=== PATIENT | male | born 1980 | race Two or more races ===

== ENCOUNTER 2020-11-25 20:24 | Emergency (ER) | payer SELFPAY ==
--- NOTE | 2020-11-25 20:49 | EDM.PDOC ---
<Ronni Ashraf - Last Filed: 11/25/20 21:10> ED HPI GENERAL MEDICAL PROBLEM - General Stated Complaint: POISON OAK Time Seen by Provider: 11/25/20 20:44 Source of Information: Reports: Patient History Limitations: Reports: No Limitations - History of Present Illness INITIAL COMMENTS - FREE TEXT/NARRATIVE: Patient is a 40 yo male with no significant PMH and not on any medications that presents for rash/itching of his arms. Patient was clearing brush/branches in his yard yesterday, 11/24, and developed a itchy rash over both of his forearms today that is getting worse. Patient tried benadryl and calamine lotion this afternoon at 4pm with mild relief. He has no other concerns and denies any other symptoms. Denies fever, chills, chest pain, SOB, abd pain, or nausea/vomiting. Onset: Today, Sudden Location: Reports: Upper Extremity, Left, Upper Extremity, Right Quality: Reports: Burning Severity: Mild Improves with: Reports: Medication Worsens with: Reports: Other (Itching) Associated Symptoms: Reports: No Other Symptoms Treatments ELEMENTARY PRINCIPAL: Reports: Other (see below) (Benadryl) - Related Data Allergies Allergy/AdvReac Type Severity Reaction Status Date / Time No Known Allergies Allergy Verified 11/25/20 20:49 Home Meds: Home Meds Pramoxine HCl/Zinc Acetate [Calamine Clear Lotion] 177 ml TP 11/25/20 [History] diphenhydrAMINE [Benadryl] 11/25/20 [History] ED ROS GENERAL - Review of Systems Review Of Systems: See Below Constitutional: Reports: No Symptoms HEENT: Reports: No Symptoms Respiratory: Reports: No Symptoms Cardiovascular: Reports: No Symptoms Endocrine: Reports: No Symptoms GI/Abdominal: Reports: No Symptoms : Reports: No Symptoms Musculoskeletal: Reports: No Symptoms Skin: Reports: Pruritis, Rash Neurological: Reports: No Symptoms Psychiatric: Reports: No Symptoms ED EXAM, SKIN/RASH Exam: See Below Exam Limited By: No Limitations General Appearance: Alert, WD/WN, No Apparent Distress Eye Exam: Bilateral Eye: PERRL Ears: Hearing Grossly Normal Nose: Normal Inspection Throat/Mouth: Normal Inspection, Normal Lips Head: Atraumatic, Normocephalic Neck: Normal Inspection Respiratory/Chest: No Respiratory Distress, Lungs Clear, Normal Breath Sounds, No Accessory Muscle Use, Chest Non-Tender Cardiovascular: Normal Peripheral Pulses, Regular Rate, Rhythm, No Edema GI/Abdominal: Normal Bowel Sounds, Soft, Non-Tender, No Distention Extremities: Non-Tender, No Pedal Edema, Normal Capillary Refill, Redness (Maculopapular rash of forearms bilaterally) Neurological: Alert, Oriented Psychiatric: Normal Affect, Normal Mood Skin: Warm, Dry, Rash (Maculopapular rash on bilateral forearms), Tattoo(s) Departure - Departure Time of Disposition: 21:13 Disposition: Home, Self-Care 01 Clinical Impression: Poison oak dermatitis - Discharge Information *PRESCRIPTION DRUG MONITORING PROGRAM REVIEWED*: No *COPY OF PRESCRIPTION DRUG MONITORING REPORT IN PATIENT JASMIN: No Instructions: Poison Evangelina Dermatitis, [id number] Forms: ED Department Discharge Additional Instructions: prednisone 40mg x 5 days benadryl 25mg three times daily as needed for tiching follow up if symptoms worsen - Problem List & Annotations (1) Poison oak dermatitis SNOMED Code(s): 295231534 Code(s): L23.7 - ALLERGIC CONTACT DERMATITIS DUE TO PLANTS, EXCEPT FOOD Status: Acute - Problem List Review Problem List Initiated/Reviewed/Updated: Yes - Assessment/Plan Plan: Benadryl 25 mg TID PRN for itching. Prednisone 40 mg daily. Continue with Calmine lotion and other anti-itch creams. Discussed proper skin care. <Arpita Rees - Last Filed: 11/26/20 05:21> Course - Vital Signs Last Recorded V/S: Last Vital Signs Temp 99.6 F 11/25/20 20:46 Pulse 98 11/25/20 20:46 Resp 16 11/25/20 20:46 BP 135/85 11/25/20 20:46 Pulse Ox 97 11/25/20 20:46 - Orders/Labs/Meds Meds: Medications Discontinued Medications Generic Name Dose Route Start Last Admin Trade Name Freq PRN Reason Stop Dose Admin Hydroxyzine HCl 25 mg 11/25/20 20:55 11/25/20 21:15 Hydroxyzine Hcl 25 Mg Tab PO 11/25/20 20:56 25 mg ONETIME ONE Administration Prednisone 40 mg 11/25/20 20:57 11/25/20 21:15 Prednisone 20 Mg Tab PO 11/25/20 20:58 40 mg ONETIME ONE Administration Departure - Departure Condition: Good Sepsis Event Note (ED) - Focused Exam Vital Signs: Vital Signs Temp Pulse Resp BP Pulse Ox 11/25/20 20:46 99.6 F 98 16 135/85 97 Attestation - Resident - Attestation Statement Attestation Statement: I saw and evaluated the patient. Discussed with resident and agree with residents findings and plan as documented in the residents note.
[2020-11-25] MEDS ORDERED: hydrOXYzine HCl 25 MG Tab PO ONE (20:55)
[2020-11-25] MEDS ORDERED: predniSONE 20 MG Tab PO ONE (20:57)
== END 2020-11-25 21:16 | disposition home or self-care (01) ==
LOC: DL.ED 20:24
DX: L23.7 Allergic contact dermatitis due to plants, except food (principal)
CPT/HCPCS: 99282; 99283; A9270; J7512

== ENCOUNTER 2021-01-11 14:56 | Emergency (ER) | payer SELFPAY ==
[2021-01-11] MEDS ORDERED: Ondansetron 4 MG Tab.DIS PO ONE (14:57)
[2021-01-11] MEDS ORDERED: Famotidine 20 MG/2 ML SDV IVPUSH ONE (16:59)
[2021-01-11] MEDS ORDERED: Sodium Chloride 0.9% 1,000 ML IV ONE (16:59)
[2021-01-11] MEDS ORDERED: Ondansetron 4 MG/2 ML SDV IV ONE (16:59)
[2021-01-11] MEDS ORDERED: Sodium Chloride 0.9% 10 ML Syringe FLUSH PRN (16:59)
[2021-01-11 17:39] LABS: PTT,PARTIAL THROMBOPLSTIN TIME 22.3 SEC (22.0-34.0)
[2021-01-11 17:41] LABS: ANION GAP 16.4 mEq/L (7-13); CHLORIDE,CL 103 mmol/L (98-107); SODIUM,NA 142 mmol/L (136-145)
[2021-01-11] MEDS ORDERED: GI Cocktail Oral Solution 30 ML PO ONE (17:56)
--- NOTE | 2021-01-11 18:34 | EDM.PDOC ---
Scribed by Yaritza Freitas 01/11/21 [id number] for Hola Jackson MD ED HPI GENERAL MEDICAL PROBLEM - General Chief Complaint: Gastrointestinal Problem Stated Complaint: 96.0 * TEMP, THROWING UP ALL NIGHT, Time Seen by Provider: 01/11/21 16:58 Source of Information: Reports: Patient, RN, RN Notes Reviewed History Limitations: Reports: No Limitations - History of Present Illness INITIAL COMMENTS - FREE TEXT/NARRATIVE: Patient presents to ED by POV stating that he has been vomiting since last evening. He felt well yesterday until he ate an under cooked hamburger. A few hours after eating he began to feel nauseated and vomited several times during the night. He thought it would pass but he has continued to vomit today anytime he has tried to eat or drink. Denies fever or chills. Denies diarrhea. Denies any another symptoms. Admits to epigastric abdominal pain, no radiating pain. He saw a few streaks of red blood in his vomitus on one occasion. Onset Date: 01/10/21 Duration: Constant Location: Reports: Abdomen Severity: Moderate Improves with: Reports: None Worsens with: Reports: None Associated Symptoms: Reports: No Other Symptoms - Related Data Allergies Allergy/AdvReac Type Severity Reaction Status Date / Time No Known Allergies Allergy Verified 01/11/21 16:56 Home Meds: Home Meds . [No Known Home Meds] 01/11/21 [History] Past Medical History - Past Health History Medical/Surgical History: Denies Medical/Surgical History HEENT History: Reports: None Cardiovascular History: Reports: None Respiratory History: Reports: None Gastrointestinal History: Reports: None Genitourinary History: Reports: None Musculoskeletal History: Reports: None Neurological History: Reports: None Psychiatric History: Reports: None Hematologic History: Reports: None Immunologic History: Reports: None Oncologic (Cancer) History: Reports: None Dermatologic History: Reports: None - Infectious Disease History Infectious Disease History: Reports: None Social & Family History - Family History Family Medical History: No Pertinent Family History - Caffeine Use Caffeine Use: Reports: Coffee ED ROS GENERAL - Review of Systems Review Of Systems: Comprehensive ROS is negative, except as noted in HPI. ED EXAM, GI/ABD - Physical Exam Exam: See Below Exam Limited By: No Limitations General Appearance: Alert, WD/WN, No Apparent Distress Eyes: Bilateral: Normal Appearance Nose: Normal Inspection, No Blood Throat/Mouth: Normal Inspection, Normal Lips, Normal Teeth, Normal Gums, Normal Oropharynx, Normal Voice, No Airway Compromise Head: Atraumatic, Normocephalic Neck: Normal Inspection, Supple, Non-Tender, Full Range of Motion Respiratory/Chest: No Respiratory Distress, Lungs Clear, Normal Breath Sounds, No Accessory Muscle Use, Chest Non-Tender Cardiovascular: Normal Peripheral Pulses, Regular Rate, Rhythm, No Edema, No Gallop, No JVD, No Murmur, No Rub GI/Abdominal Exam: Normal Bowel Sounds, Soft, No Organomegaly, No Distention, Tender (Epigastric region). No: Guarding, Rigid, Rebound (Male) Exam: Deferred Rectal (Males) Exam: Deferred Back Exam: Normal Inspection. No: CVA Tenderness (L) Extremities: Normal Inspection Neurological: Alert, Oriented, CN II-XII Intact, Normal Cognition, Normal Gait, No Motor/Sensory Deficits Psychiatric: Normal Affect, Normal Mood Skin Exam: Warm, Dry, Intact, Normal Color, No Rash. No: Ecchymosis, Jaundice, Petechiae Course - Vital Signs Last Recorded V/S: Last Vital Signs Temp 96.2 F L 01/11/21 16:57 Pulse 61 01/11/21 16:57 Resp 20 01/11/21 16:57 BP 160/98 H 01/11/21 16:57 Pulse Ox 99 01/11/21 16:57 - Orders/Labs/Meds Orders: Active Orders 24 hr Category Date Time Status Peripheral IV Care [RC] . DIRECTED Care 01/11/21 16:59 Active Sodium Chloride 0.9% [Saline Flush] Med 01/11/21 16:59 Active 10 ml FLUSH ASDIRECTED PRN Peripheral IV Insertion Adult [OM.PC] Stat Oth 01/11/21 16:59 Ordered Medication Orders Sodium Chloride (Sodium Chloride 0.9% 10 Ml Syringe) 10 ml FLUSH ASDIRECTED PRN PRN Reason: Keep Vein Open Last Admin: 01/11/21 17:14 Dose: 10 ml Documented by: JOSEPH Labs: Laboratory Tests 01/11/21 01/11/21 01/11/21 Range/Units 17:17 17:17 17:17 WBC 12.1 H (5.0-10.0) 10^3/uL RBC 5.32 (4.6-6.2) 10^6/uL Hgb 16.3 (14.0-18.0) g/dL Hct 47.0 (40.0-54.0) % MCV 88.3 (80-100) fL MCH 30.6 (27.0-34.0) pg MCHC 34.7 (33.0-35.0) g/dL Plt Count 268 (150-450) 10^3/uL Neut % (Auto) 86.6 H (42.2-75.2) % Lymph % (Auto) 8.9 L (20.5-50.1) % Hyde % (Auto) 4.1 (2-8) % Eos % (Auto) 0.1 L (1.0-3.0) % Baso % (Auto) 0.3 (0.0-1.0) % PT 9.9 (9.0-12.0) SEC INR 1.0 (0.9-1.2) APTT 22.3 (22.0-34.0) SEC Sodium 142 (136-145) mmol/L Potassium 3.4 L (3.5-5.1) mmol/L Chloride 103 (98-107) mmol/L Carbon Dioxide 26 (21-32) mmol/L Anion Gap 16.4 H (7-13) mEq/L BUN 13 (7-18) mg/dL Creatinine 0.87 (0.70-1.30) mg/dL Est Cr Clr Drug Dosing 96.22 mL/min Estimated GFR (MDRD) > 60 BUN/Creatinine Ratio 14.9 (No establ ref range) Glucose 130 H (70-99) mg/dL Calcium 9.2 (8.5-10.1) mg/dL Total Bilirubin 0.6 (0.2-1.0) mg/dL AST 17 (15-37) U/L ALT 41 (16-63) U/L Alkaline Phosphatase 69 (46-116) U/L Total Protein 7.7 (6.4-8.2) g/dL Albumin 4.5 (3.4-5.0) g/dL Globulin 3.2 Albumin/Globulin Ratio 1.4 Amylase 73 (25-115) U/L Lipase 69 L (73-393) U/L Meds: Medications Generic Name Dose Route Start Last Admin Trade Name Rosibel PRN Reason Stop Dose Admin Sodium Chloride 10 ml 01/11/21 16:59 01/11/21 17:14 Sodium Chloride 0.9% 10 Ml Syringe FLUSH 10 ml ASDIRECTED PRN Administration Keep Vein Open Discontinued Medications Generic Name Dose Route Start Last Admin Trade Name Rosibel PRN Reason Stop Dose Admin Al Hydroxide/Mg Hydroxide 30 ml 01/11/21 17:56 01/11/21 18:03 Gi Cocktail Oral Solution 30 Ml PO 01/11/21 17:57 30 ml ONETIME ONE Administration Famotidine 20 mg 01/11/21 16:59 01/11/21 17:14 Famotidine 20 Mg/2 Ml Sdv IVPUSH 01/11/21 17:00 20 mg ONETIME ONE Administration Sodium Chloride 1,000 mls @ 999 mls/hr 01/11/21 16:59 01/11/21 17:14 Normal Saline IV 01/11/21 17:59 999 mls/hr .BOLUS ONE Administration Ondansetron HCl 4 mg 01/11/21 16:59 01/11/21 17:14 Ondansetron 4 Mg/2 Ml Sdv IV 01/11/21 17:00 4 mg ONETIME ONE Administration Departure - Departure Time of Disposition: 18:32 Disposition: Home, Self-Care 01 Condition: Good Clinical Impression: Gastritis Qualifiers: Gastritis type: unspecified gastritis Chronicity: acute Gastritis bleeding: without bleeding Qualified Code(s): K29.00 - Acute gastritis without bleeding - Discharge Information *PRESCRIPTION DRUG MONITORING PROGRAM REVIEWED*: Not Applicable *COPY OF PRESCRIPTION DRUG MONITORING REPORT IN PATIENT JASMIN: Not Applicable Instructions: Gastritis, Adult, [id number] Forms: ED Department Discharge Additional Instructions: Rx: Pepcid (Famotidine) 40mg: One tablet daily for up to one month. Zofran 4mg ODT as needed for nausea. Avoid spicy foods, fried foods, and alcohol for 7 to 10 days. Follow up in clinic for recheck if not completely improved in 3 to 5 days. Call [phone] for a clinic appointment if needed. Sepsis Event Note (ED) - Focused Exam Vital Signs: Vital Signs Temp Pulse Resp BP Pulse Ox 01/11/21 16:57 96.2 F L 61 20 160/98 H 99 - My Orders Last 24 Hours: My Active Orders 01/11/21 16:59 Peripheral IV Care [RC] . DIRECTED Sodium Chloride 0.9% [Saline Flush] 10 ml FLUSH ASDIRECTED PRN Peripheral IV Insertion Adult [OM.PC] Stat - Assessment/Plan Last 24 Hours: My Active Orders 01/11/21 16:59 Peripheral IV Care [RC] . DIRECTED Sodium Chloride 0.9% [Saline Flush] 10 ml FLUSH ASDIRECTED PRN Peripheral IV Insertion Adult [OM.PC] Stat I have read and agree with the documentation that has been completed regarding this visit. By signing this record, I attest that the documentation was completed in my physical presence and is an accurate record of the encounter.
[2021-01-11] MEDS ORDERED: Ondansetron 4 MG Tab.DIS ONE (18:40)
== END 2021-01-11 18:50 | disposition home or self-care (01) ==
LOC: DL.ED 14:56
DX: K29.00 Acute gastritis without bleeding (principal)
CPT/HCPCS: 36415; 80053; 82150; 83690; 85025; 85610; 85730; 96374; 96375; 99284; A9270; J2405; J3490; J7030